=== PATIENT | female | born 2005 | race Caucasian/White ===

== ENCOUNTER 2025-01-25 06:02 | Outpatient (REF) | payer BC, SELFPAY ==
--- NOTE | ~2025-01-25 | US_ITS ---
CLINICAL HISTORY: PELVIC AND PERINEAL PAIN US pelvis transabdominal and transvaginal Comparison: None provided Findings: Transabdominal scanning performed for overall anatomy. Transvaginal scanning performed for additional detail. Anteverted uterus is 8.2 cm length. Normal myometrium. No endometrial lesion, 8.4 mm thickness. Right ovary 3.3 x 2.4 x 1.9 cm. Left ovary 3.1 x 2.5 x 1.9 cm. No free fluid. IMPRESSION: 1. Unremarkable pelvic ultrasound. This document has been electronically signed by: Epifanio Lopez MD on 01/25/2025 14:42:06
--- OUTSIDE RECORDS SUMMARY | 2025-01-25 06:04 | XMS_ITS | Encounter Summary ---
Author Organization [facility] Address [address] [place] [address] [place] [address] Phone Care Team Providers Care Reeling Machine Operator Name Role Phone Miley Mcleod MD Primary Care Provider [phone] Miley Mcleod MD Unavailable [phone] Miley Mcleod MD Unavailable [phone] Reason for Visit * Reason Comments Med Change Request Encounter Details Date Type Department Care Team (Late st Contact Info) Description 10/27/2024 [facility]ill [facility] [address] [place] [address] Miley Mcleod MD [address] [place] [address] [email or web address] Med Change Request Social History Tobacco Use Types Packs/Day Years Used Date Smoking Tobacco: Never Education Answer Date Recorded Are you interested in more education? Not on alejo e 08/28/2022 Are you concerned about learning? Not on file 08/28/2022 No 08/28/2022 No 08/28/2022 Digital Access Answer Date Recorded No 09/15/2022 No 09/15/2022 Reliable internet access at home? Not on file 09/15/2022 Device with a working camera? Not on file Intimate Partner Violence Answer Date R ecorded Are you denied basic needs s uch as food, clothing, or medical care? No 05/30/2024 In the past 12 months have y ou been in a relationship with a person who hurts, threatens, or tries to control you? No 05/30/2024 Are you denied basic needs s uch as food, clothing, or medical care? No 05/30/2024 In the past 12 months have y ou been in a relationship with a person who hurts, threatens, or tries to control you? No 05/30/2024 Comments Unknown Sex and Gender Information Value Date Recorded Sex Assigned at Female 05/30/2024 5:15 PM EST Legal Sex Female 6:59 PM EST Gender Identity Female 05/30/2024 5:15 PM EST Sexual Orientation Don't know 05/30/2024 5: 15 PM EST documented as of this encounter Plan of Treatment Upcoming Encounters Date Type Department Care Team (Late st Contact Info) Description 01/27/2025 10:45 AM EDT [facility] [address] [address] Miley Mcleod MD [address] [place] [address] 10/05/2025 11:00 AM EDT [facility] [address] [address] Miley Mcleod MD [address] [place] [phone] documented as of this encounter Visit Diagnoses Not on filedocumented in this encounter Additional Health Concerns Assessment Noted Time PHQ-9 Depression Total Score: 12 025 3:25 PM EDT PHQ-2 Depression Total Score: 4 10/04/19 25 3:25 PM EDT documented as of this encounter Care Teams Reeling Machine Operator Relationship Specialty Start Date End Date Miley Mcleod MD [address] [place] [phone] [email or web address] PCP - General 06/25/18 Miley Mcleod MD [address] [place] [address] Historical LMR Provider 07/02/18 Miley Mcleod MD [address] [place] [address] [email or web address] Insurance Assigned Provider 10/30/24 documented as of this encounter Additional Source Comments The information contained in this document represents components of the legal health record. It is not the complete legal health record.[facility]
--- OUTSIDE RECORDS SUMMARY | 2025-01-25 06:04 | XMS_ITS | Patient Health Record ---
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 JILLIAN RAMIREZ [phone] [id number] Wilfred Lara Child - Insured has Financial Responsibility Medical (General) History Medical History History ICD Code unremarkable
--- OUTSIDE RECORDS SUMMARY | 2025-01-25 06:04 | XMS_ITS | Encounter Summary ---
Author Organization [facility] Address [address] [place] [address] [place] [phone] Phone Care Team Providers Care Category Consultant Name Role Phone Miley Mcleod MD Unavailable [phone] Miley Mcleod MD Primary Care Provider Miley Mcleod MD Unavailable [phone] Maggi Morales MD Unavailable [phone] Miley Mcleod MD Unavailable [phone] Reason for Visit * Reason Comments Medication Refill Encounter Details Date Type Department Care Team (Late Contact Info) Description 06/20/2020 [facility]ill [facility] [address] [address] Miley Mcleod MD [address] [place] [address] [email or web address] Medication Refill Social History Tobacco Use Types Packs/Day Years Used Date Smoking Tobacco: Never Comments Unknown Sex and Gender Information Value [...] AM EDT [facility] [address] [address] Miley Mcleod MD [address] [place] [address] [email or web address] 10/05/2025 11:00 AM EDT [facility] [address] [address] Miley Mcleod MD [address] [place] [address] [email or web address] documented as of this encounter Visit Diagnoses Diagnosis Major depressive disorder, recurrent, moderate Major depressive disorder, recurrent episode, moderate Generalized anxiety disorder Mixed obsessional thoughts and acts Social anxiety disorder Social phobia documented in this encounter Care Teams Category Consultant Relationship Specialty Start Date End Date Miley Mcleod MD [address] [place] [address] PCP - General 06/25/18 Miley Mcleod MD [address] [place] [phone] Insurance Assigned Provider 07/26/23 Miley Mcleod MD [address] [place] [address] Historical LMR Provider 07/02/18 Maggi Morales MD [address] [place] [address] Historical LMR Provider 07/02/18 2 Miley Mcleod MD [address] [place] [address] [email or web address] Insurance Assigned Provider 10/30/24 documented as of this encounter Additional Source Comments The information contained in this document represents components of the legal health record. It is not the complete legal health record.[facility]
--- OUTSIDE RECORDS SUMMARY | 2025-01-25 06:04 | XMS_ITS | Encounter Summary ---
Author Organization [facility] Address [address] [place] [address] Phone Care Team Providers Care Olive Grader Name Role Phone Miley Mcleod MD Primary Care Provider [phone] Miley Mcleod MD Unavailable [phone] Miley Mcleod MD Unavailable [phone] Reason for Visit * Reason Comments Medication Refill Encounter Details Date Type Department Care Team (Late st Contact Info) Description 11/28/2024 Refill [facility] [address] [place] [address] Miley Mcleod MD [address] [place] [address] [email or web address] Medication Refill Social History Tobacco Use Types [...] AM EDT [facility] Visit [facility] [address] [address] Miley Mcleod MD [address] [place] [address] 10/05/2025 11:00 AM EDT [facility] Visit [facility] [address] [address] Miley Mcleod MD [address] [place] [address] documented as of this encounter Visit Diagnoses Not on filedocumented in this encounter Additional Health Concerns Assessment Noted Time PHQ-9 Depression Total Score: 12 025 3:25 PM EDT PHQ-2 Depression Total Score: 4 10/04/19 25 3:25 PM EDT documented as of this encounter Care Teams Olive Grader Relationship Specialty Start Date End Date Miley Mcleod MD [address] [place] [address] [email or web address] PCP - General 06/25/18 Miley Mcleod MD [address] [place] [address] Historical LMR Provider 07/02/18 Miley Mcleod MD [address] [place] [address] [email or web address] Insurance Assigned Provider 10/30/24 documented as of this encounter Additional Source Comments The information contained in this document represents components of the legal health record. It is not the complete legal health record.[facility]
--- OUTSIDE RECORDS SUMMARY | 2025-01-25 06:04 | XMS_ITS | Clinical Summary ---
Author Organization [facility] Address [address] [place] [phone] Phone Care Team Providers Care Harvest Crew Supervisor Name Role Phone Miley Mcleod MD Primary Care Provider [phone] Miley Mcleod MD Unavailable [phone] Miley Mcleod MD Unavailable [phone] Allergies No known active allergies Medications cyproheptadine (PERIACTIN) 4 mg tablet 3 Active sulfacetamide sodium-sulfur (PRASCION) 10-5 % (w/w) ClsrIndications: Acne vulgaris Apply topically once per night. Lather onto the skin before rinsing. 340 g 3 4 Active Additional Information Patient not taking.Reported on 01/05/2025 pantoprazole (PROTONIX) 20 MG tablet Take 1 tablet (20 mg total) by mouth daily. 30 tablet 1 5 Active doxycycline monohydrate (MONODOX) 100 MG capsule Take 1 capsule (100 mg total) by mouth 2 (two) times a day. 27 capsule 5 Active metroNIDAZOLE (FLAGYL) 500 MG tablet Take 1 tablet (500 mg total) by mouth 3 (three) times a day. 41 tablet 5 Active oxyCODONE 5 MG immediate release tablet Take 1 tablet (5 mg total) by mouth every 4 (four) hours as needed for pain (specific location in comments). Partial fill ok 8 tablet 5 Active vonoprazan (VOQUEZNA) 20 mg tablet Take 1 tablet (20 mg total) by mouth daily. 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 She has been home since September 02, 2024, and is currently working two jobs: one at an [employer] school and another at [employer]. Nutrition: She is focused on maintaining a healthy lifestyle through diet and exercise, despite some setbacks. Social Screening: The patient has a good support system and is focused on managing her health and well-being. Sexual screening: She is sexually active, using condoms consistently, and has expressed interest in potentially using control in the future. - Ordered Chlamydia trachomatis and Neisseria gonorrhoeae Nucleic Acid Amplification; Future. Guidance: Age appropriate anticipatory guidance was provided. Safety: Age appropriate safety protocols were discussed. Dermatological screening: - Recommended regular skin checks with a body press operator. Orders: Chlamydia trachomatis and Neisseria gonorrhoeae Nucleic Acid Amplification; Future Family history of blood clots 06/26/2022 Family history of lupus anticoagulant disorder 0 06/20/2021 Hot flashes 06/20/2021 Shakiness 06/20/2021 Family history of Graves' disease 06/20/2021 Chronic nausea 12/27/2020 Assessment & Plan (12/28/2020 7:24 AM EDT): Johanny has been complaining of persistent nausea. Mentions an episode in the past when she felt extremely nauseous and had presyncope feeling and fever, and was seen by a nurse who suggested mild fever, and later seen at our office but not fever was documented at that time. Reports feeling dizzy and having hot flashes when she is nauseous. Denies vomiting. States nausea interferes with her eating. Admits to heart burn symptoms and takes TUMS frequently. States she gets the taste of the vomit at the back of her throat periodically as well. I explained that some of her not feeling well symptoms and nausea could be caused by GERD. Treatment and monitoring recommended. Prescribed Prilosec 20 mg twice daily. Advised to keep a symptom diary. Advised to follow up in 2-3 weeks for med check. Gastroesophageal reflux disease 12/27/2020 Assessment & Plan (10/04/2024 5:44 PM EDT): The patient reports that her gastrointestinal symptoms have been problematic since the beginning of the year, with a notable lack of response to current medications. She describes a constant sensation of discomfort in her throat, which she attributes to acid reflux. Despite being careful with her diet, including attempts to eat bland foods, the patient continues to experience symptoms such as frequent belching and a feeling of needing to burp, which she finds distressing. She has tried medications including Pepcid and omeprazole, but has not noticed significant improvement. The patient recalls that a different version of omeprazole had previously worked for her, but upon restarting it, she did not see the same benefits. She is scheduled for a gastroenterology appointment in December and has been advised to get on a cancellation list for an earlier appointment. - Prescribed pantoprazole as an alternative proton pump inhibitor to try and alleviate symptoms. - Continue taking Famotidine as needed. - Monitor dietary habits and avoid triggers that exacerbate symptoms. - Stay on the cancellation list for the gastroenterology appointment and call to check for any cancellations. Assessment & Plan (01/18/2021 2:25 PM EDT): The patient was previously consulted on 12/27/2020, and at that visit the patient had nausea, heart burn symptoms and was started on omeprazole twice a day. Patient reports that she is feeling better with regards to the heartburn. States that her she is only experiencing nausea associated with anxiety or with certain foods at this time. She is not able to identify the specific foods that trigger her symptoms. Mentions that her '' general feeling of feeling sick all the time'' has been relieved. Condition is well managed by current management. Recommended continuing the omeprazole but decreasing dose to once a day for another month. Advised to identify certain food items that might be triggering the nausea. Discussed common food triggers, and advised against eating large meals. Suggested having smaller and more frequent meals, and avoid the know triggers. Informed that the medication should be gradually weaned, and advised to take the last 7 pills of monthly supply on alternate days. Advised against weaning the medication abruptly. Advised to inform if the symptoms worsens on the lower dose. Assessment & Plan (12/28/2020 4:01 AM EDT): Refer to chronic nausea. Social anxiety disorder 01/07/2020 Assessment & Plan (02/29/2020 2:25 PM EST): Patient with above diagnosis. We reviewed her diagnosis and treatment options, increase dose of sertraline, continue with current dose of propranolol. We reviewed the risks/benefits and side effects and when to call with concern. We reviewed black box warning and safety plan as indicated. Mom agreed with the plan. 1. Stop sertraline 150mg po qd and start sertraline 200mg po qd 2. Continue with propranolol 10mg po bid 3. Continue with therapy 4. Follow up in 1 month or sooner if the need arise with PCP Assessment & Plan (02/03/2020 1:41 PM EDT): Patient with above diagnosis. We reviewed her diagnosis and treatment options, I will continue with current dose of sertraline, continue with current dose of propranolol. We reviewed the risks/benefits and side effects and when to call with concern. We reviewed black box warning and safety plan as indicated. Mom agreed with the plan. They know how to reach me if the need arise. 1. Continue with sertraline 150mg po qd 2. Continue with propranolol 10mg po bid 3. Continue with therapy 4. Follow up in 1 month or sooner if the need arise Assessment & Plan (01/07/2020 11:16 AM EDT): Patient with above diagnosis. We reviewed her diagnosis and treatment options, I will increase dose of sertraline, continue with current dose of propranolol. We reviewed the risks/benefits and side effects and when to call with concern. We reviewed black box warning and safety plan as indicated. Mom agreed with the plan. They know how to reach me if the need arise. 1. Start sertraline 150mg po qd 2. Continue with propranolol 10mg po bid 3. Continue with therapy 4. Follow up in 1 month or sooner if the need arise Mixed obsessional thoughts and acts 01/07/2020 Assessment & Plan (02/29/2020 2:24 PM EST): Patient with above diagnosis. We reviewed her diagnosis and treatment options, increase dose of sertraline, continue with therapy as primary intervention. We reviewed the risks/benefits and side effects and when to call with concern. We reviewed black box warning and safety plan as indicated. Mom agreed with the plan. 1. Stop sertraline 150mg po qd and start sertraline 200mg po qd 2. Continue with therapy 3. Follow up in 1 month or sooner if the need arise with PCP Assessment & Plan (02/03/2020 1:38 PM EDT): Patient with above diagnosis. We reviewed her diagnosis and treatment options, I will continue with current dose of sertraline, continue with therapy as primary intervention. We reviewed the risks/benefits and side effects and when to call with concern. We reviewed black box warning and safety plan as indicated. Mom agreed with the plan. They know how to reach me if the need arise. 1. Continue with sertraline 150mg po qd 2. Continue with therapy 3. Follow up in 1 month or sooner if the need arise Assessment & Plan (01/07/2020 2:55 PM EDT): Patient with above diagnosis. We reviewed her diagnosis and treatment options, I will increase dose of sertraline, continue with therapy as primary intervention. We reviewed the risks/benefits and side effects and when to call with concern. We reviewed black box warning and safety plan as indicated. Mom agreed with the plan. They know how to reach me if the need arise. 1. Start sertraline 150mg po qd 2. Continue with therapy 3. Follow up in 1 month or sooner if the need arise Major depressive disorder, recurrent, moderate 0 06/21/2019 Assessment & Plan (10/04/2024 5:44 PM EDT): The patient has previously been on Lexapro but discontinued it due to adverse effects and is currently not taking any psychiatric medications. She expresses a desire to explore genetic testing for medication tolerance in the future, as she has had a long history of medication trials with varying results. - Discussed the option of genetic testing to identify medications that may be better tolerated in the future. - Continue therapy and consider follow-up with a psychiatric nurse practitioner if needed. Assessment & Plan (01/18/2021 3:23 AM EDT): Refer generalized anxiety disorder Assessment & Plan (02/29/2020 2:24 PM EST): Patient with above diagnosis. We reviewed her diagnosis and treatment options, increase dose of sertraline, continue with current dose of lamictal for mood lability. We reviewed the risks/benefits and side effects and when to call with concern. We reviewed black box warning and safety plan as indicated. Mom agreed with the plan. 1. Stop sertraline 150mg po qd and start sertraline 200mg po qd 2. Continue with lamictal 150mg po qd 3. Continue with therapy 4. Adhere to safety plan for safety concern 5. Follow up in 1 month or sooner if the need arise with PCP Assessment & Plan (02/03/2020 1:40 PM EDT): Patient with above diagnosis. We reviewed her diagnosis and treatment options, I will continue with current dose of sertraline, continue with current dose of lamictal for mood lability. We reviewed the risks/benefits and side effects and when to call with concern. We reviewed black box warning and safety plan as indicated. Mom agreed with the plan. They know how to reach me if the need arise. 1. Continue with sertraline 150mg po qd 2. Continue with lamictal 150mg po qd 3. Continue with therapy 4. Adhere to safety plan for safety concern 5. Follow up in 1 month or sooner if the need arise Assessment & Plan (01/07/2020 2:57 PM EDT): Patient with above diagnosis. We reviewed her diagnosis and treatment options, I will increase dose of sertraline, continue with current dose of lamictal for mood lability. We reviewed the risks/benefits and side effects and when to call with concern. We reviewed black box warning and safety plan as indicated. Mom agreed with the plan. They know how to reach me if the need arise. 1. Start sertraline 150mg po qd 2. Continue with lamictal 150mg po qd 3. Continue with therapy 4. Adhere to safety plan for safety concern 5. Follow up in 1 month or sooner if the need arise Current episode of major dep ressive disorder without prior episode 06/14/2019 Assessment & Plan (12/28/2020 7:27 AM EDT): Has a h/o depression and anxiety and was on Zoloft 200 mg and Lamictal 100 mg daily. States she ran out of the medications 3 weeks ago. Mentions her therapist is on leave currently. States she is sick all the time and suspects side effects from different medications. She had a hard time being more specific about what she meant by not feeling well She is interested in getting off some of her medications. Reports she was a mess in the past few weeks and was feeling sick when she was off Zoloft. Mentions her therapist wanted her to get evaluated for ADD. Has h/o headaches and is followed by . He is prescribing Lamictal and Propranolol. She is not currently under the care of a psychiatrist. Reviewed and reconciled the medication list. Advised not to restart the Zoloft as she has already discontinued this medication. Advised to talk to regarding possible wean off Lamictal and for evaluation of her ADD concerns. Supportive listening and counselling provided. I recommended evaluation by a psychiatrist for medication re-evaluation as patient still struggles with anxiety and depression symptoms but is also concerned that the medication she has been taking is contributing to her not feeling well. Referral placed in [facility]. Migraine without aura 06/11/2019 Overview (12/11/2022): Followed by Dr. Cardona. Taking Cyproheptadine. Assessment & Plan (01/18/2021 3:22 AM EDT): The patient is on propranolol, she is unsure if she should be on this medication. Mother mentions that the patient has an appointment on 01/22/[address] Cardona. Patient states that she is unsure if her headaches are triggered by stress. Reports that she haven't had a headache for while. Advised to discuss with Dr Cardona regarding the medication. Well adolescent visit without abnormal findings 06/04/2016 Generalized anxiety disorder 06/28/2014 Assessment & Plan (10/04/2024 5:44 PM EDT): As per assessment Major depressive disorder, recurrent, moderate . Assessment & Plan (01/18/2021 2:34 PM EDT): The patient used to be under the consultation of Dr. Celaya, and then later she was consulted by Sb Webster, and Quincy Reilly. Currently, she is under consultation of therapist Linda but does not have a psychiatrist for medication management. Patient used to be on Zoloft but this was discontinued when patient ran out of the medication. Currently Johanny feels that she is doing ok emotionally. She is hoping to talk to her neurologist about an ADHD medication and is not interested in starting a new medication for depression at this time. Suggested psychiatry consultation for medication evaluation.. Medication list was reviewed. Assessment & Plan (12/28/2020 4:01 AM EDT): Refer to current severe episode of major depressive disorder without psychotic features without prior episode. Assessment & Plan (02/29/2020 2:23 PM EST): Patient with above diagnosis. We reviewed her diagnosis and treatment options, increase dose of sertraline, continue with current dose of propranolol. We reviewed the risks/benefits and side effects and when to call with concern. We reviewed black box warning and safety plan as indicated. Mom agreed with the plan. 1. Stop sertraline 150mg po qd and start sertraline 200mg po qd 2. Continue with propranolol 10mg po bid 3. Continue with therapy 4. Follow up in 1 month or sooner if the need arise with PCP Assessment & Plan (02/03/2020 1:38 PM EDT): Patient with above diagnosis. We reviewed her diagnosis and treatment options, I will continue with current dose of sertraline, continue with current dose of propranolol. We reviewed the risks/benefits and side effects and when to call with concern. We reviewed black box warning and safety plan as indicated. Mom agreed with the plan. They know how to reach me if the need arise. 1. Continue with sertraline 150mg po qd 2. Continue with propranolol 10mg po bid 3. Continue with therapy 4. Follow up in 1 month or sooner if the need arise Assessment & Plan (01/07/2020 11:16 AM EDT): Patient with above diagnosis. We reviewed her diagnosis and treatment options, I will increase dose of sertraline, continue with current dose of propranolol. We reviewed the risks/benefits and side effects and when to call with concern. We reviewed black box warning and safety plan as indicated. Mom agreed with the plan. They know how to reach me if the need arise. 1. Start sertraline 150mg po qd 2. Continue with propranolol 10mg po bid 3. Continue with therapy 4. Follow up in 1 month or sooner if the need arise Obesity 06/15/2009 Resolved Problems Problem Noted Date Diagnosed Date Resolved Date Pharyngitis 05/28/2022 06/03/2024 Assessment & Plan (05/29/2022 3:53 AM EST): Patient reports that she developed sore throat two days ago- she does experience pain with swallowing. Her symptoms are associated with a raspy voice, post nasal drip, mild nasal congestion, and cough. Mentions that 2 times she notices a blood- tinged sputum, but she is not sure. Her cough has worsened since the past couple of days. Her home COVID-19 test was negative this morning. No known exposure to Influenza or COVID-19 infection. Today during the visit she had tightness in Her throat. She visited urgent care for chest pain and mother was informed that Johanny was able to replicate costochondritis; She also had trouble breathing. She has been taking Advil for the same. She has not had a cough during this illness. Her symptoms are consistent with viral illness. Vitals were reviewed and are normal. Ordered POCT Rapid Strep A and Throat culture. Informed her rapid strep test was negative. Was informed that she will be notified of positive results only for the throat culture test. Reassured her respiratory exam was normal. Encouraged use of supportive care of her symptoms including throat lozenges, analgesic, hydration, humidity, soft food. Recommended good nose blowing and nasal saline for nasal congestion. Can try home, or tea with honey. Discussed symptoms to watch for like fever, worsening cough, breathing difficulty. Abnormal movements 08/18/2018 0 Encounters Date Type Department Care Team Description 01/05/2025 11:45 AM EDT Office Visit [facility] [address] [facility], [address] [address] Wilfred Lopez MD Gastroesophageal reflux disease without esophagitis (Primary Dx) 01/05/2025 Telephone [facility] [address] [facility], [address] [address] Wilfred Lopez MD 01/05/2025 Refill [facility] [address] [facility], [address] [address] Megan Cota MA Medication Refill 01/04/2025 Refill [facility] [address] [address] Noel Hunt MD Medication Refill 12/25/2024 9:42 PM EDT - 12/25/2024 11:58 PM EDT Emergency [facility] [address] [place] [address] Freddie Sanchez, DO Discharge Disposition: Home or Self Care 11/28/2024 Refill [facility] [address] [address] Miley Mcleod MD Medication Refill 10/27/2024 Refill [facility] [address] [address] Miley Mcleod MD Med Change Request from Last 3 Months Immunizations Immunization Administration Dates Next Due COVID-19 (Pre-02/10) Pfizer Vaccine, Bivalent 12+ 02/27/2022 COVID-19 (Pre-02/10) Pfizer Vaccine, mRNA, PF 10/02/2020,09/11/2020 DTP 06/13/2008, 6,2004,10/01,2004 [id number] FORMULATION 02/08/2009 HPV9 01/27/2019,07/29/2018 Hepatitis A, Unspecified 06/06/2011,06/07/2010 Hepatitis B, unspecified formulation 2004, 2004,2004 Hib, unspecified formulation 12/11/2005, 2004,2004,07/31 INFLUENZA, SPLIT VIRUS, TRIVALENT PF 05/07/2024 Influenza Quadrivalent Intranasal 06/14/2015 Influenza Quadrivalent Prese rvative Free IM 03/27/2023,02/20/2022,12/27/2020,02/18,01/27/2019,06/01/2018,01/30/2017 ,01/31/2016 Influenza, Unspecified Formulation 01/24,02/16/2013,11/27/2011,06/06,06/07/2010,02/08/2009 MMR 06/15/2009,09/03/2005 Meningococcal B, OMV (MenB-4C) 07/25/2021,2021 Meningococcal MCV4P 06/19/2020,06/14/2015 Pneumococcal, Unspecified Formulation ,2004,2004,07/31 Polio, Unspecified Formulation 9,2004,2004,07/31 Tdap 10/04/2024,06/14/2015 Varicella 06/15/2009,09/03/2005 Family History Medical History Relation Comments ADD / ADHD Brother Anxiety disorder Brother OCD Spectrum disorder Brother Anxiety disorder Father Depression Father Hypothyroidism Maternal Aunt Graves' disease Maternal Grandfather Migraines Maternal Grandmother Depression Mother Migraines Mother Asthma Sister Relation Status Comments Brother Alive Father Alive Maternal Aunt Maternal Grandfather Alive Maternal Grandmother Alive Mother Alive Sister Alive Social History Tobacco Use Types Packs/Day Years Used Date Smoking Tobacco: Never Tobacco Cessation:Counseling Given: Not Answered Education Answer Date Recorded Are you interested in more education? Not on alejo e 08/28/2022 Are you concerned about learning? Not on file 08/28/2022 No 08/28/2022 No 08/28/2022 Food Answer Date Recorded Within the past 6 months we worried whether our food would run out before we got money to buy more. Never True 12/25/2024 Within the past 6 months the food we bought just didn't last and we didn't have enough money to get more. Never True Residential Stability Answer Date Recor ded What is your housing situation today? I have yovanny lyons 12/25/2024 How many times have you move d in the past 12 months? Zero (I did not move) 12/25/2024 Paying for Meds Answer Date Recorded Do you have trouble paying for medicines? No 12/25/2024 Paying Utility Bills Answer Date Record ed Do you have trouble paying your heating or elect ricity bill? No 12/25/2024 Transportation Answer Date Recorded Has the lack of transportati on kept you from medical appointments or from getting medications? No 12/25/2024 Digital Access Answer Date Recorded No 12/25/2024 Yes 12/25/2024 Do you have reliable internet access at home? Ye s 12/25/2024 Do you have a device (e.g., phone, tablet, computer) with a working camera? Yes 12/25/2024 Intimate Partner Violence Answer Date R ecorded Are you denied basic needs s uch as food, clothing, or medical care? No 12/25/2024 In the past 12 months have y ou been in a relationship with a person who hurts, threatens, or tries to control you? No 12/25/2024 Are you denied basic needs s uch as food, clothing, or medical care? No 12/25/2024 In the past 12 months have y ou been in a relationship with a person who hurts, threatens, or tries to control you? No 12/25/2024 Comments Unknown Sex and Gender Information Value Date Recorded Sex Assigned at Female 05/30/2024 5:15 PM EST Legal Sex Female 6:59 PM EST Gender Identity Female 05/30/2024 5:15 PM EST Sexual Orientation Don't know 05/30/2024 5: 15 PM EST Last Filed Vital Signs Vital Sign Reading Time Taken Comments Blood Pressure 104/78 01/05/2025 11:41 AM EDT Pulse 81 01/05/2025 11:41 AM EDT Temperature 36.1 C (97 F) 12/25/2024 11:30 PM EDT Respiratory Rate 18 12/25/2024 11:30 PM EDT Oxygen Saturation 100% 12/25/2024 11:30 PM EDT Inhaled Oxygen Concentration - - Weight 82.6 kg (182 lb) 01/05/2025 11:41 AM EDT Height 165.1 cm (5' 5 ) 12/25/2024 7:37 PM EDT Body Mass Index 30.29 12/25/2024 7:37 PM EDT Plan of Treatment Upcoming Encounters Date Type Department Care Team (Late st Contact Info) Description 01/27/2025 10:45 AM EDT Office Visit [facility] [address] [address] Miley Mcleod MD [address] [place] [phone] 10/05/2025 11:00 AM EDT Office Visit [facility] [address] [address] Miley Mcleod MD [address] [place] [id number] Health Maintenance Due Date Last Done Comments HIV ONE-TIME SCREENING (18-65 YEARS) 2022 INFLUENZA VACCINE (#1) 2024 , 03/27/2023, 02/20/2022, Additional history exists COVID-19 VACCINE ( season) 2024 03/27/2023, 02/27/2022, 06/23/2021, Additional history exists CHLAMYDIA SCREENING 12/25/2025 12/25/2024, 10/04/2024, 07/08/2023, Additional history exists DEPRESSION SCREENING 01/05/2026 01/05/2025, 10/05/19 DEVELOPMENTAL/BEHAVIORAL SCREENING (PHQ, PSC, or SWYC) 01/05/2026 01/05/2025, 10/04/2024, 10/04/2024 SMOKING Hx and SMOKELESS TOBACCO SCREENING 01/05/2026 01/05/2025 COMBINED DTaP,Tdap,Td (8 - Td or Tdap) 10/04/2034 10/04/2024, 06/14/2015, 06/13/2008, Additional history exists PNEUMOCOCCAL VACCINES (0-49 years) Aged Out 09/03/2005, 2004, 2004, Additional history exists No longer eligible based on patient's age to complete this topic HIB VACCINES Completed 12/11/2005, 11/19, 2004, Additional history exists MMR VACCINES Completed 06/15/2009, 09/03/2005 VARICELLA VACCINES Completed 06/15/2009, 09/03/2005 HEPATITIS A VACCINES Completed 06/06/2011, 06/07/19 11 HPV VACCINES Completed 01/27/2019, 07/29/2018 MENINGOCOCCAL VACCINES (ACWY) Completed 06/19/2020, 06/14/2015 MENINGOCOCCAL VACCINES (B) Completed 07/25/2021, HEPATITIS C SCREENING Completed 06/27/2022, 023 ADOLESCENT UNIVERSAL LIPID SCREENING Completed 2024, 06/27/2022, 06/27/2022, Additional history exists REPEAT PHQ Completed 01/05/2025, 10/04/2024 Medical Devices Not on file Procedures Procedure Name Priority Date/Time Associated Diagnosis Comments HC SMR PRIM SRC WET [place] NFCT AGT STAT 12/25/2024 11:08 PM EDT CHLAMYDIA TRACHOMATIS AND NEISSERIA GONORRHOEAE NUCLEIC ACID DETECTION STAT 12/25/2024 11:08 PM EDT C-REACTIVE PROTEIN STAT 12/25/2024 8: 12 PM EDT HCG, SERUM QUALITATIVE STAT 12/25/2024 8:12 PM EDT LIPASE STAT 12/25/2024 8:12 PM EDT LFTS (HEPATIC PANEL) STAT 12/25/2024 8:12 PM EDT BASIC METABOLIC PANEL STAT 12/25/2024 8:12 PM EDT CBC AND DIFFERENTIAL STAT 12/25/2024 8:12 PM EDT URINALYSIS W/REFLEX URINE CULTURE STAT 12/25/2024 7:47 PM EDT LIPID PANEL Routine 2024 9:28 AM EST Screening for hyperlipidemia HEPATITIS C VIRUS ANTIBODY Routine 06/27/2022 4:18 PM EST Well adolescent visit without abnormal findings from Last 3 Months or Most Recently Relevant to Health Maintenance Results * Wet [place] (12/25/2024 11:08 PM EDT) White Blood Cells PRESENT [facility] Clue Cells NONE SEEN NONE SEEN [facility] trichomonas NONE SEEN NONE SEEN [facility] Yeast NONE SEEN NONE SEEN [facility] Other (Vaginal) 12/25/2024 1 1:08 PM EDT 12/25/2024 11:20 PM EDT us Freddie G Sanchez DO BODY FLUIDS AND STOOLS ORDERA BLES Final Result Performing Organization Address [facility]/ZIP Co de Phone Number [address] [address] * Chlamydia Trachomatis and Neisseria Gonorrhoeae Nucleic Acid Detection (12/25/2024 11:08 PM EDT) CHLAMYDIA TRACHOMATIS Not Detected Not Detected [facility] NEISERIA GONORRHOEAE Not Detected Not Detected [facility] SPECIMEN TYPE VAGINAL [facility] Other (Vaginal) 12/25/2024 1 1:08 PM EDT 12/25/2024 11:20 PM EDT us Freddie G Sanchez DO NON CULTURE MICROBIOLOGY Ewelina l Result Performing Organization Address City/[facility]/ZIP Co de Phone Number [address] [address] * HCG, serum qualitative (12/25/2024 8:12 PM EDT) HCG, QUALITATIVE Negative Negative IU/L [facility] Blood 12/25/2024 8:12 PM EDT 12/25/2024 8:16 PM EDT Reinier Mcmanus PA-C LAB BLOOD ORDERABLES Final Re sult Performing Organization Address City/[facility]/ZIP Co de Phone Number [address] [address] * (ABNORMAL) LFTs (hepatic panel) (12/25/2024 8:12 PM EDT) Pathologist [facility] ALKALINE PHOSPHATASE 53 39 - 117 U/L [facility] TOTAL BILIRUBIN 0.3 0.0 - 1.2 mg/dL [facility] DIRECT BILIRUBIN 0.1 0.0 - 0.2 mg/dL [facility] Bilirubin (Indirect) NOT CALCULATED 0 - 1.5 mg/dL [facility] AST 26 0 - 37 U/L [facility] ALT 49(H) 0 - 40 U/L [facility] TOTAL PROTEIN 7.4 6.5 - 8.0 g/dL [facility] ALBUMIN 4.6 3.9 - 4.8 g/dL [facility] GLOBULIN 2.8 1 - 4.8 g/dL [facility] A/G Ratio 1.64 1.00 - 4.80 RATIO [facility] Blood 12/25/2024 8:12 PM EDT 12/25/2024 8:16 PM EDT Reinier Mcmanus PA-C LAB BLOOD ORDERABLES Final Re sult Performing Organization Address City/[facility]/ZIP Co de Phone Number [address] [address] * (ABNORMAL) CBC and differential (12/25/2024 8:12 PM EDT) WBC 9.19 4.00 - 11.00 K/uL [facility] RBC 5.05 4.00 - 5.20 M/uL [facility] HGB 13.6 12.0 - 16.0 g/dL [facility] HCT 41.5 36.0 - 46.0 % [facility] PLT 309 150 - 450 K/uL [facility] MCV 82.2 80.0 - 100.0 fL [facility] MCH 26.9(L) 27.0 - 31.0 pg [facility] MCHC 32.8 32.0 - 36.0 g/dL [facility] RDW 13.2 11.5 - 14.5 % [facility] MPV 9.6 8.4 - 12.0 fL [facility] NRBC 0.00 0.00 /100 WBCs [facility] ABSOLUTE NRBC 0.00 0.00 K/uL [facility] DIFF METHOD Auto [facility] NEUTS 53.1 48.0 - 76.0 % [facility] LYMPHS 36.9 18.0 - 41.0 % [facility] MONOS 6.9 4.0 - 11.0 % [facility] EOS 2.0 0.0 - 5.0 % [facility] BASOS 0.9 0.0 - 1.5 % [facility] Granulocytes, immature (%) 0.2 0.0 - 0.9 % [facility] ABSOLUTE NEUTS 4.89 1.92 - 7.60 K/uL [facility] ABSOLUTE LYMPHS 3.39 0.72 - 4.10 K/uL [facility] ABSOLUTE MONOS 0.63 0.16 - 1.10 K/uL [facility] ABSOLUTE EOS 0.18 0.00 - 0.50 K/uL [facility] ABSOLUTE BASOS 0.08 0.00 - 0.15 K/uL [facility] Granulocytes, immature 0.02 0.00 - 0.09 K/uL [facility] Blood 12/25/2024 8:12 PM EDT 12/25/2024 8:16 PM EDT us Reinier Mcmanus PA-C LAB BLOOD ORDERABLES Final Re sult [facility] [address] [place] [address] * C-Reactive Protein (12/25/2024 8:12 PM EDT) C REACTIVE PROTEIN <3.0 0.0 - 4.0 mg/L [facility] Blood 12/25/2024 8:12 PM EDT 12/25/2024 8:16 PM EDT Reinier Mcmanus PA-C LAB BLOOD ORDERABLES Final Re sult [address] [address] * Lipase (12/25/2024 8:12 PM EDT) Pathologist [facility] LIPASE 22 16 - 63 U/L [facility] Blood 12/25/2024 8:12 PM EDT 12/25/2024 8:16 PM EDT Reinier ALEJO-C LAB BLOOD ORDERABLES Final Re sult [address] [address] * Basic metabolic panel (12/25/2024 8:12 PM EDT) SODIUM 141 133 - 146 mmol/L [facility] CHLORIDE 105 96 - 108 mmol/L [facility] POTASSIUM 4.1 3.3 - 5.1 mmol/L [facility] CO2 23 21 - 35 mmol/L [facility] BUN 12 6 - 19 mg/dL [facility] CREATININE 0.60 0.5 - 1.5 mg/dL [facility] GLUCOSE 85 70 - 99 mg/dL [facility] CALCIUM 10.0 8.4 - 10.3 mg/dL [facility] EGFR >120 >59 mL/min/1.7 3m2 [facility] Comment:Estimated glomerular filtration rate calculated using the CKD-EPI refit equation. ANION GAP 17 10 - 20 mmol/L [facility] Blood 12/25/2024 8:12 PM EDT 12/25/2024 8:16 PM EDT us Reinier Mcmanus PA-C LAB BLOOD ORDERABLES Final Re sult Performing Organization Address City/[facility]/ZIP Co de Phone Number [address] [address] * Urinalysis w/reflex Urine Culture (12/25/2024 7:47 PM EDT) COLOR Yellow Yellow [facility] CLARITY Clear [facility] GLUCOSE Negative Negative [facility] BILI Negative Negative [facility] KETONES Negative Negative [facility] SPECIFIC GRAVITY <1.005 1.005 - 1.030 [facility] BLOOD Negative Negative [facility] PH 6.0 5.0 - 8.0 [facility] Protein-UA Negative Negative [facility] NITRITE Negative Negative [facility] Leukocyte esterase, ur Negative Negative [facility] Urine (Urine) 12/25/2024 7:4 7 PM EDT 12/25/2024 9:16 PM EDT us Taylor Ellis PA-C URINE ORDERABLES Final Resu lt Performing Organization Address [facility] Co de Phone Number [address] [address] * (ABNORMAL) Lipid panel (2024 9:28 AM EST) Cholesterol 191 <200 mg/dL [facility] Triglycerides 146 <150 mg/dL [facility] HDL Cholesterol 54(L) >=60 mg/dL [facility] LDL Cholesterol Calculated 108(H) <100 mg/dL [facility] Chol HDL Ratio 3.5 <5.0 [facility] 2024 9:28 AM EST us Miley Mcleod MD LAB BLOOD ORDERABLES Final Re sult [facility] [address] [place] [address], [facility] [phone] * Hepatitis C Virus Antibody (06/27/2022 4:18 PM EST) Hepatitis C Virus Antibody NonReactive NonReactive [facility] 06/27/2022 4:18 PM EST us Miley Mcleod MD LAB BLOOD ORDERABLES Final Re sult [facility] [address] [place] [address], [facility] [phone] from Last 3 Months or Most Recently Relevant to Health Maintenance Insurance [employer] [facility] PPO [employer] OUT OF [facility] PPO OUT OF [facility] PPO OUT [facility] PPO BLUE CROSS OUT OF STATE PPO CROSS OUT OF [facility] PPO CROSS OUT [facility] PPO OUT STATE PPO Care Teams Harvest Crew Supervisor Relationship Specialty Start Date End Date Miley Mcleod MD [address] [place] [address] [email or web address] PCP - General 06/25/18 Miley Mcleod MD [address] [address] [email or web address] Historical LMR Provider 07/02/18 Miley Mcleod MD [address] [place] [address] [email or web address] Insurance Assigned Provider 10/30/24 Additional Source Comments The information contained in this document represents components of the legal health record. It is not the complete legal health record.[facility]
--- OUTSIDE RECORDS SUMMARY | 2025-01-25 06:04 | XMS_ITS | Encounter Summary ---
Author Organization [facility] Address [address] [place] [address] Phone Care Team Providers Care Samples And Repairs Preparer Name Role Phone Miley Mcleod MD Primary Care Provider [phone] Miley Mcleod MD Unavailable [phone] Miley Mcleod MD Unavailable [phone] Reason for Visit * Reason Comments Medication Refill Encounter Details Date Type Department Care Team ([facility] st Contact Info) Description 01/04/2025 Refill [facility] [address] [address] Noel Hunt MD [address] [address] Medication Refill Social History Tobacco Use Types [...] PM EST documented as of this encounter Progress Notes * Ankit Rosenberg - 01/05/2025 7:04 AM EDT Pharmacy refill request for sulfacetamide sodium-sulfur 10-5 % (w/w) Clsr . Patient last seen 10/17/2022. No follow-up appointment. A message was sent to the patient through the patient gateway to arrange a follow-up appointment for refills. documented in this encounter Plan of Treatment Upcoming Encounters Date Type Department Care Team (Late st Contact Info) Description 01/27/2025 10:45 AM EDT [facility] [address] [address] Miley Mcleod MD [address] [place] [address] 10/05/2025 11:00 AM EDT Office Visit [address] [address] Miley Mcleod MD [address] [place] [address] documented as of this encounter Visit Diagnoses Diagnosis Acne vulgaris Other acne documented in this encounter Additional Health Concerns Assessment Noted Time PHQ-9 Depression Total Score: 12 025 3:25 PM EDT PHQ-2 Depression Total Score: 4 10/04/19 25 3:25 PM EDT documented as of this encounter Care Teams Samples And Repairs Preparer Relationship Specialty Start Date End Date Miley Mcleod MD [address] [place] [address] PCP - General 06/25/18 Miley Mcleod MD [address] [place] [address] Historical LMR Provider 07/02/18 Miley Mcleod MD [address] [place] [address] Insurance Assigned Provider 10/30/24 documented as of this encounter Additional Source Comments The information contained in this document represents components of the legal health record. It is not the complete legal health record.[facility]
--- OUTSIDE RECORDS SUMMARY | 2025-01-25 06:05 | XMS_ITS | Encounter Summary ---
Author Organization [facility] Address [address] [place] [address] Phone Care Team Providers Care Supervisor [employer] Name Role Phone Miley Mcleod MD Unavailable [phone] Miley Mcleod MD Primary Care Provider [phone] Miley Mcleod MD Unavailable [phone] Maggi Morales MD Unavailable [phone] Miley Mcleod MD Unavailable [phone] Reason for Visit * Reason Comments Medication Refill Encounter Details Date Type Department Care Team (Late st Contact Info) Description 04/08/2020 Refill [facility] [address] [address] Fara Reilly, [employer] [address] [place] [address] Medication Refill Social History Tobacco Use Types [...] AM EDT [facility] [address] [address] Miley Mcleod MD [address] [place] [address] [email or web address] 10/05/2025 11:00 AM EDT [facility] Visit [facility] [address] [address] Miley Mcleod MD [address] [place] [address] [email or web address] documented as of this encounter Visit Diagnoses Diagnosis Major depressive disorder, recurrent, moderate Major depressive disorder, recurrent episode, moderate Generalized anxiety disorder Mixed obsessional thoughts and acts Social anxiety disorder Social phobia documented in this encounter Care Teams Supervisor [employer] Relationship Specialty Start Date End Date Miley Mcleod MD [address] [place] [address] [email or web address] PCP - General 06/25/18 Miley Mcleod MD [address] [place] [address] Insurance Assigned Provider 07/26/23 Miley Mcleod MD [address] [place] [address] Historical LMR Provider 07/02/18 Maggi Morales MD [address] [place] [address] Historical LMR Provider 07/02/18 2 Miley Mcleod MD [address] [place] [address] [address] [place] [address] [email or web address] Insurance Assigned Provider 10/30/24 documented as of this encounter Additional Source Comments The information contained in this document represents components of the legal health record. It is not the complete legal health record.[facility]
--- OUTSIDE RECORDS SUMMARY | 2025-01-25 06:05 | XMS_ITS | Encounter Summary ---
Author Organization [facility] Address [address] [place] [address] Phone Care Team Providers Care Middle School Teacher Name Role Phone Miley Mcleod MD Unavailable [phone] Miley Mcleod MD Primary Care Provider [phone] Miley Mcleod MD Unavailable [phone] Maggi Morales MD Unavailable [phone] Miley Mcleod MD Unavailable [phone] Reason for Visit * Reason Comments Medication Refill Encounter Details Date Type Department Care Team (Late st Contact Info) Description 02/23/2020 Refill [facility] [address] [address] Fara Reilly, [employer] [address] [place] [address] Medication Refill Social History Tobacco Use Types [...] AM EDT [facility] [address] [address] Miley Mcleod MD [address] [place] [address] [email or web address] 10/05/2025 11:00 AM EDT [facility] Visit [facility] [address] [address] Miley Mcleod MD [address] [place] [address] [email or web address] documented as of this encounter Visit Diagnoses Diagnosis Major depressive disorder, recurrent, moderate Major depressive disorder, recurrent episode, moderate Generalized anxiety disorder Mixed obsessional thoughts and acts Social anxiety disorder Social phobia documented in this encounter Care Teams Middle School Teacher Relationship Specialty Start Date End Date Miley Mcleod MD [address] [place] [address] [email or web address] PCP - General 06/25/18 Miley Mcleod MD [address] [place] [address] Insurance Assigned Provider 07/26/23 Miley Mcleod MD [address] [place] [address] Historical LMR Provider 07/02/18 Maggi Morales MD [address] [place] [address] Historical LMR Provider 07/02/18 2 Miley Mcleod MD [address] [place] [address] [address] [place] [address] [email or web address] Insurance Assigned Provider 10/30/24 documented as of this encounter Additional Source Comments The information contained in this document represents components of the legal health record. It is not the complete legal health record.[facility]
== END 2025-01-25 06:03 | disposition home or self-care (01) ==
LOC: HO.UMASIMG 06:02
PROVIDERS: Visit Provider Family Medicine
DX: R10.20 Pelvic and perineal pain unspecified side (principal); N94.2 Vaginismus
CPT/HCPCS: 76830; 76856

== ENCOUNTER → 2025-01-25 10:21 | Outpatient (BNV) | payer BC, SELFPAY | PROVIDERS: Visit Provider Radiology Vascular & Interventional Radiology | DX: R10.20 Pelvic and perineal pain unspecified side (principal) | CPT/HCPCS: 76830; 76856 ==